=== PATIENT | female | born 1960 | race Caucasian/White ===

== ENCOUNTER 2020-07-15 11:29 | Observation (INO) ==
[2020-07-15] MEDS ORDERED: 0.9 % Sodium Chloride 500 ML IVC SCH (14:15)
[2020-07-15] MEDS ORDERED: Naloxone 0.4 MG/ML INJ IVP PRN (15:26)
[2020-07-15] MEDS ORDERED: Albuterol 2.5 MG/3 ML NEBULIZER IH PRN (15:28)
[2020-07-15] MEDS: carvediloL 6.25 MG TABLET PO SCH (16:50)
[2020-07-15] MEDS: *HR* Heparin 5,000 UNIT/ML VIAL SQ SCH (16:53)
[2020-07-15] MEDS: Budesonide/Formoterol 160/4.5 1 PUFF INH IH SCH (23:21)
[2020-07-16 02:46] LABS: Basophils % 0.4 %; Lymphocytes % 17.9 %; Red Cell Distribution Width 13.6 % (11.5-14.5)
[2020-07-16 02:48] LABS: Eosinophils # 0.3 K/mcL (0.0-0.6); Eosinophils % 2.9 %; Hematocrit 34.5 % (35.3-44.9); Hemoglobin 11.2 g/dL (11.5-15.4); Immature Granulocytes % 1.6 % (0-4); Mean Corpuscular HGB Conc 32.5 g/dL (31.6-35.5); Mean Corpuscular Hemoglobin 29.8 pg (28.0-33.3); Mean Corpuscular Volume 91.8 fL (83.0-100.0); Mean Platelet Volume 13.3 fL (9.4-12.4); Monocytes # 1.2 K/mcL (0.0-1.3); Monocytes % 10.9 %; Neutrophils # 7.4 K/mcL (1.6-8.9); Platelet Count 214 K/mcL (140-400); Red Blood Count 3.76 M/mcL (3.82-4.97); Segmented Neutrophils % 66.3 %; White Blood Count 11.2 K/mcL (4.3-11.1)
[2020-07-16 03:04] LABS: BUN/Creatinine Ratio 35 (6-26); Blood Urea Nitrogen 29 mg/dL (8-23); Calcium 8.1 mg/dL (8.6-10.3); Carbon Dioxide 27 mEq/L (23-29); Chloride 105 mEq/L (98-107); Glucose 94 mg/dL (70-105); Osmolality,Calculated 288 (280-300); Potassium 4.1 mEq/L (3.5-5.1); Sodium 136 mEq/L (136-145); eGFR For African Americans > 60 (> 60); eGFR For Non-African Americans > 60 (> 60)
[2020-07-16] MEDS: *HR* Heparin 5,000 UNIT/ML VIAL SQ SCH (05:41)
[2020-07-16] MEDS: Budesonide/Formoterol 160/4.5 1 PUFF INH IH SCH (08:12)
[2020-07-16] MEDS ORDERED: Cholecalciferol (D-3) 1,000 UNIT (25MCG) TABLET PO SCH (09:00)
[2020-07-16] MEDS ORDERED: predniSONE 20 MG TABLET PO SCH (09:00)
[2020-07-16] MEDS ORDERED: Aspirin 81 MG TAB.CHEW PO SCH (09:00)
[2020-07-16] MEDS ORDERED: Tiotropium 10 INH DOSE IH SCH (10:00)
[2020-07-16] MEDS: carvediloL 6.25 MG TABLET PO SCH (10:02)
[2020-07-16 11:17] VITALS: BP 107/54
== END 2020-07-16 13:00 | disposition home or self-care (01) ==
LOC: 2NENU → SUATTDRO 13:30
PROVIDERS: ADMIT Internal Medicine; ATTEND Family Medicine

== ENCOUNTER 2020-11-26 07:50 | Inpatient (IN) ==
[2020-11-26] MEDS ORDERED: Ondansetron 4 MG/2 ML VIAL IVP PRN (09:58)
[2020-11-26] MEDS ORDERED: Naloxone 0.4 MG/ML INJ IVP PRN (09:58)
[2020-11-26] MEDS ORDERED: *HR* HYDROcodone/Acet 5/325 mg TABLET PO PRN (09:58)
[2020-11-26] MEDS ORDERED: Perflutren Lipid Microsphere 1.3 ML in 0.9 % Sodium Chloride 8.7 ML IVP PRN (10:01)
[2020-11-26] MEDS ORDERED: Ipratropium/Albuterol Neb 3 ML IH PRN (10:02)
[2020-11-26] MEDS: Furosemide 40 MG/4 ML VIAL IVP SCH ×2 (10:22→20:02)
[2020-11-26 11:42] LABS: Amphetamine Screen,Urine Negative ng/mL (Cutoff=1000); Barbiturate Screen,Urine Negative ng/mL (Cutoff=200); Benzodiazepines Screen,Urine Negative ng/mL (Cutoff=200); Cannabinoid Screen,Urine Negative ng/mL (Cutoff = 50); Cocaine Screen,Urine Negative ng/mL (Cutoff= 300); Opiate Screen,Urine Negative ng/mL (Cutoff=300); Phencyclidine Screen,Urine Negative ng/mL (Cutoff=25)
[2020-11-26 12:38] LABS: Hemoglobin 12.7 g/dL (11.5-15.4); Immature Granulocytes % 0.3 % (0-4)
[2020-11-26 12:40] LABS: Basophils # 0.1 K/mcL (0.0-0.2); Basophils % 0.9 %; Eosinophils # 0.1 K/mcL (0.0-0.6); Eosinophils % 1.9 %; Hematocrit 41.2 % (35.3-44.9); Immature Platelets 12.6 % (1.1-6.1); Lymphocytes # 0.9 K/mcL (0.6-4.6); Lymphocytes % 16.1 %; Mean Corpuscular HGB Conc 30.8 g/dL (31.6-35.5); Mean Corpuscular Hemoglobin 25.2 pg (28.0-33.3); Mean Corpuscular Volume 81.7 fL (83.0-100.0); Monocytes # 0.4 K/mcL (0.0-1.3); Monocytes % 6.5 %; Neutrophils # 4.3 K/mcL (1.6-8.9); Platelet Count 225 K/mcL (140-400); Red Blood Count 5.04 M/mcL (3.82-4.97); Red Cell Distribution Width 18.2 % (11.5-14.5); Segmented Neutrophils % 74.3 %; White Blood Count 5.8 K/mcL (4.3-11.1)
[2020-11-26 12:54] LABS: Calcium 9.6 mg/dL (8.6-10.3); Magnesium 1.8 mg/dL (1.6-2.6); Phosphorous 4.5 mg/dL (2.7-4.5); Potassium 3.4 mEq/L (3.5-5.1)
[2020-11-26 12:59] LABS: INR 1.2; Prothrombin Time 13.4 Seconds (9.4-12.1)
[2020-11-26 13:02] LABS: Activated Partial Thrombo Time 33.9 Seconds (26.0-36.0)
[2020-11-26] MEDS: *HR* Heparin 5,000 UNIT/ML VIAL SQ SCH (16:35)
[2020-11-26] MEDS: carvediloL 6.25 MG TABLET PO SCH (20:02)
[2020-11-26] MEDS: Sacubitril/Valsartan 49/51 MG 1 TABLET PO SCH (20:02)
[2020-11-27] MEDS: *HR* Heparin 5,000 UNIT/ML VIAL SQ SCH ×2 (03:36→16:20)
[2020-11-27] MEDS ORDERED: Spironolactone 12.5 MG TABLET PO SCH (09:00)
[2020-11-27] MEDS: carvediloL 6.25 MG TABLET PO SCH ×3 (09:30→15:32)
[2020-11-27] MEDS: Aspirin 81 MG TAB.CHEW PO SCH (10:03)
[2020-11-27] MEDS: Cholecalciferol (D-3) 1,000 UNIT (25MCG) TABLET PO SCH (10:03)
[2020-11-27] MEDS: Albumin 25% 25gram/100mL 25 GM/100 ML IV.SOLN IVPB SCH ×2 (10:03→21:37)
[2020-11-27] MEDS: Furosemide 40 MG/4 ML VIAL IVP SCH ×3 (10:12→21:22)
[2020-11-27] MEDS: Sacubitril/Valsartan 49/51 MG 1 TABLET PO SCH ×2 (10:12→21:23)
[2020-11-27 10:30] LABS: Basophils % 1.1 %; Hemoglobin 13.5 g/dL (11.5-15.4); Immature Granulocytes % 0.4 % (0-4)
[2020-11-27 10:32] LABS: Basophils # 0.1 K/mcL (0.0-0.2); Eosinophils # 0.3 K/mcL (0.0-0.6); Eosinophils % 5.3 %; Hematocrit 42.6 % (35.3-44.9); Immature Platelets 12.5 % (1.1-6.1); Lymphocytes # 1.2 K/mcL (0.6-4.6); Lymphocytes % 21.1 %; Mean Corpuscular HGB Conc 31.7 g/dL (31.6-35.5); Mean Corpuscular Hemoglobin 25.6 pg (28.0-33.3); Mean Corpuscular Volume 80.7 fL (83.0-100.0); Mean Platelet Volume 13.6 fL (9.4-12.4); Monocytes # 0.5 K/mcL (0.0-1.3); Monocytes % 8.9 %; Platelet Count 238 K/mcL (140-400); Red Blood Count 5.28 M/mcL (3.82-4.97); Red Cell Distribution Width 18.4 % (11.5-14.5); Segmented Neutrophils % 63.2 %; White Blood Count 5.6 K/mcL (4.3-11.1)
[2020-11-27] MEDS ORDERED: Acetaminophen 325 MG TABLET PO ONE (10:37)
[2020-11-27 10:47] LABS: Neutrophils # 3.5 K/mcL (1.6-8.9)
[2020-11-27 11:31] LABS: Calcium 9.2 mg/dL (8.6-10.3); Magnesium 1.9 mg/dL (1.6-2.6); Phosphorous 4.1 mg/dL (2.7-4.5)
[2020-11-27] MEDS ORDERED: *HR* HYDROcodone/Acet 5/325 mg TABLET PO PRN (15:15)
[2020-11-27] MEDS ORDERED: Acetaminophen 325 MG TABLET PO PRN (15:57)
[2020-11-28] MEDS: *HR* Heparin 5,000 UNIT/ML VIAL SQ SCH ×2 (06:23→17:49)
[2020-11-28] MEDS: Spironolactone 12.5 MG TABLET PO SCH (07:28)
[2020-11-28] MEDS: carvediloL 6.25 MG TABLET PO SCH ×2 (07:28→16:22)
[2020-11-28] MEDS: Sacubitril/Valsartan 49/51 MG 1 TABLET PO SCH ×2 (07:28→21:16)
[2020-11-28] MEDS: Albumin 25% 25gram/100mL 25 GM/100 ML IV.SOLN IVPB SCH ×2 (08:07→21:17)
[2020-11-28] MEDS: Aspirin 81 MG TAB.CHEW PO SCH (08:10)
[2020-11-28] MEDS: Cholecalciferol (D-3) 1,000 UNIT (25MCG) TABLET PO SCH (08:10)
[2020-11-28 08:14] LABS: Calcium 9.6 mg/dL (8.6-10.3); Phosphorous 3.9 mg/dL (2.7-4.5); Potassium 3.5 mEq/L (3.5-5.1)
[2020-11-28] MEDS: Furosemide 40 MG/4 ML VIAL IVP SCH ×2 (09:18→13:06)
[2020-11-29] MEDS: *HR* Heparin 5,000 UNIT/ML VIAL SQ SCH (05:47)
[2020-11-29] MEDS: Furosemide 40 MG/4 ML VIAL IVP SCH ×2 (05:47→07:27)
[2020-11-29 07:11] LABS: BUN/Creatinine Ratio 33 (6-26); Blood Urea Nitrogen 33 mg/dL (8-23); Calcium 9.5 mg/dL (8.6-10.3); Carbon Dioxide 29 mEq/L (23-29); Chloride 101 mEq/L (98-107); Glucose 148 mg/dL (70-105); Magnesium 2.1 mg/dL (1.6-2.6); Osmolality,Calculated 292 (280-300); Phosphorous 3.3 mg/dL (2.7-4.5); Sodium 136 mEq/L (136-145); eGFR For African Americans > 60 (> 60); eGFR For Non-African Americans 56 (> 60)
[2020-11-29 07:16] VITALS: TEMP 98
[2020-11-29] MEDS: carvediloL 6.25 MG TABLET PO SCH (07:26)
[2020-11-29] MEDS: Spironolactone 12.5 MG TABLET PO SCH (07:26)
[2020-11-29] MEDS: Sacubitril/Valsartan 49/51 MG 1 TABLET PO SCH (07:26)
[2020-11-29] MEDS: Aspirin 81 MG TAB.CHEW PO SCH (08:39)
[2020-11-29] MEDS: Cholecalciferol (D-3) 1,000 UNIT (25MCG) TABLET PO SCH (08:39)
[2020-11-29] MEDS: Albumin 25% 25gram/100mL 25 GM/100 ML IV.SOLN IVPB SCH (08:40)
[2020-11-29] MEDS ORDERED: Torsemide 20 MG TABLET PO SCH (10:00)
[2020-11-29 10:45] VITALS: BP 90/59; PULSE 73; O2SAT 94
== END 2020-11-29 15:06 | disposition home health service (06) | DRG 291 ==
LOC: 3BNU → SUATTDRO 09:48
PROVIDERS: ADMIT Internal Medicine; ATTEND Internal Medicine